=== PATIENT | male | born 1960 | race Caucasian/White ===

== ENCOUNTER 2021-04-18 12:00 | Outpatient (CLI) | payer BC ==
[2021-04-18 11:33] LABS: BASOPHILS % (AUTO) 0.8 % (0-1); EOSINOPHILS # (AUTO) 0.1 X10'3 (0-0.9); EOSINOPHILS % (AUTO) 2.3 % (0-6); LYMPHOCYTES % (AUTO) 18.5 % (21-51); MEAN CORPUSCULAR HEMOGLOBIN 31.1 PG (27.0-31.0); MEAN CORPUSCULAR HGB CONC 33.4 g/dL (33.0-36.5); MEAN CORPUSCULAR VOLUME 93.3 FL (78-98); MEAN PLATELET VOLUME 7.7 FL (7.4-10.4); MONOCYTES # (AUTO) 0.5 X10'3 (0-0.9); MONOCYTES % (AUTO) 9.7 % (2-12); NEUTROPHILS # (AUTO) 3.8 X10'3 (1.8-7.7); NEUTROPHILS % (AUTO) 68.7 % (42-75); PRE OP HEMATOCRIT 45.5 % (42.0-52.0); PRE OP HEMOGLOBIN 15.2 g/dL (14.0-17.9); PRE OP PLATELET COUNT 330 X10'3 (140-440); RED BLOOD COUNT 4.88 X10'6 (4.70-6.10); RED CELL DISTRIBUTION WIDTH 14.4 % (11.5-14.5)
[2021-04-18 11:47] LABS: ALBUMIN 4.1 G/DL (3.4-5.0); ALBUMIN/GLOBULIN RATIO 1.2 (1.1-1.5); ALKALINE PHOSPHATASE 82 IU/L (46-116); BLOOD UREA NITROGEN 23 MG/DL (7-18); BUN/CREATININE RATIO 21.7 (5.4-32.0); CALCIUM 8.8 MG/DL (8.5-10.1); CHLORIDE 105 MMOL/L (99-107); CREATININE 1.06 MG/DL (0.60-1.10); PRE OP ALT 26 U/L (30-65); PRE OP ANION GAP 6 (8-16); PRE OP AST 21 U/L (10-37); PRE OP BILIRUB, TOTAL 0.7 MG/DL (0.0-1.0); PRE OP GLUCOSE 114 MG/DL (70-104); PRE OP POTASSIUM 4.6 MMOL/L (3.4-5.1); PRE OP PROTIME 10.8 SECONDS (9.0-12.0); PRE OP SODIUM 141 MMOL/L (135-145); TOTAL CARBON DIOXIDE 29.9 MMOL/L (24-32); TOTAL PROTEIN 7.5 G/DL (6.4-8.2); eGFR 72 ML/MIN
[~2021-04-18 12:00] MED LIST: AMLO5TAB PO; IBUP-2801 PO; LOSA50TA3 PO; SUMA25TA35 PO
== END 2021-04-18 23:59 | disposition home or self-care (01) ==
LOC: PRE-OP 12:00 → EDSTATUS 04-23 10:00
PROVIDERS: ATTEND Orthopaedic Surgery
DX: Z01.818 Encounter for other preprocedural examination (principal); Z20.822 Contact with and (suspected) exposure to COVID-19; M16.12 Unilateral primary osteoarthritis, left hip
CPT/HCPCS: 36415; 80053; 85025; 85610; 85730; 86885; 86900; 86901; 87081; 93005; U0003; U0005

== ENCOUNTER 2021-05-14 05:36 | Inpatient (IN) | payer BC ==
[2021-05-08 14:54] LABS: BASOPHILS # (AUTO) 0.1 X10'3 (0-0.2); BASOPHILS % (AUTO) 0.9 % (0-1); EOSINOPHILS # (AUTO) 0.2 X10'3 (0-0.9); EOSINOPHILS % (AUTO) 2.3 % (0-6); LYMPHOCYTES # (AUTO) 1.5 X10'3 (1.1-4.8); LYMPHOCYTES % (AUTO) 20.5 % (21-51); MEAN CORPUSCULAR HEMOGLOBIN 30.8 PG (27.0-31.0); MEAN CORPUSCULAR HGB CONC 33.4 g/dL (33.0-36.5); MEAN CORPUSCULAR VOLUME 92.2 FL (78-98); MEAN PLATELET VOLUME 7.5 FL (7.4-10.4); MONOCYTES # (AUTO) 0.7 X10'3 (0-0.9); MONOCYTES % (AUTO) 9.8 % (2-12); NEUTROPHILS # (AUTO) 4.9 X10'3 (1.8-7.7); NEUTROPHILS % (AUTO) 66.5 % (42-75); PRE OP PLATELET COUNT 364 X10'3 (140-440); RED BLOOD COUNT 4.55 X10'6 (4.70-6.10); RED CELL DISTRIBUTION WIDTH 13.9 % (11.5-14.5)
[2021-05-08 15:02] LABS: ALBUMIN/GLOBULIN RATIO 1.3 (1.1-1.5); ALKALINE PHOSPHATASE 86 IU/L (46-116); BLOOD UREA NITROGEN 22 MG/DL (7-18); BUN/CREATININE RATIO 22.9 (5.4-32.0); CALCIUM 9.1 MG/DL (8.5-10.1); CHLORIDE 105 MMOL/L (99-107); CREATININE 0.96 MG/DL (0.60-1.10); PRE OP ALT 41 U/L (30-65); PRE OP ANION GAP 7 (8-16); PRE OP AST 25 U/L (10-37); PRE OP BILIRUB, TOTAL 0.3 MG/DL (0.0-1.0); PRE OP GLUCOSE 95 MG/DL (70-104); PRE OP POTASSIUM 4.4 MMOL/L (3.4-5.1); PRE OP SODIUM 140 MMOL/L (135-145); TOTAL CARBON DIOXIDE 27.6 MMOL/L (24-32); TOTAL PROTEIN 7.1 G/DL (6.4-8.2); eGFR 80 ML/MIN
[2021-05-14] VITALS (33 sets, daily range): BP systolic 105–152; BP diastolic 60–95
[~2021-05-14] VITALS: Ht 175.3 cm; Wt 85.7 kg
[~2021-05-14 05:36] MED LIST changes: +D5W IV ONE; +MELA5TAB12 PO; +VANCOMYCIN IV ONE; +cefazolin/dext.iso 2gm/50ml IV ONE; +famotidine 20mg tablet PO ONE; +ringers solution, lacted 1,000 ML IV SCH; +tranexamic acid inj. 1,000 MG in 0.7% saline 100 ML PMX IV ONE
[2021-05-14] MEDS ORDERED: vancomycin 1,000mg inj ONE (07:09)
[2021-05-14] MEDS ORDERED: tetracaine 1% (10mg/ml) pres. free inj. ONE (07:24)
[2021-05-14] MEDS ORDERED: MIDAZolam 1 MG/ML 5ML VIAL ONE (07:26)
[2021-05-14] MEDS ORDERED: fentaNYL /PF 50mcg/ml 5ml ampule ONE (07:28)
[2021-05-14] MEDS ORDERED: propofol inj 20 ML IV ONE (07:29)
[2021-05-14] MEDS ORDERED: LIDOcaine 1%/PF 5ML 10 MG/ML VIAL ONE (07:29)
[2021-05-14] MEDS ORDERED: sevoflurane 250ml liquid IH ONE (07:32)
[2021-05-14] MEDS ORDERED: morphine 2 MG/ML inj. syringe IV PRN (08:20)
[2021-05-14] MEDS ORDERED: ondansetron/PF 4mg/2ml inj IV PRN ×3 (08:20→14:15)
[2021-05-14] MEDS ORDERED: ringers solution, lacted 1,000 ML IV SCH (08:20)
[2021-05-14] MEDS ORDERED: meperidine/PF 25mg/ml syringe IV PRN ×2 (08:20)
[2021-05-14] MEDS ORDERED: proCHLORperazine 10 MG/2 ml inj IV PRN (08:20)
[2021-05-14] MEDS ORDERED: Thrombin (Bovine) 5,000 unit vial TP ONE (09:16)
[2021-05-14] MEDS ORDERED: phenylephrine 10mg/ml inj. ONE (10:25)
[2021-05-14] MEDS ORDERED: ePHEDrine 50MG/ML INJ. ONE (10:25)
[2021-05-14] MEDS ORDERED: ondansetron/PF 4mg/2ml inj ONE (10:25)
[2021-05-14] MEDS ORDERED: dexamethasone sod phosphate 4mg/ml inj. ONE (10:25)
[2021-05-14] MEDS ORDERED: rocuronium 10mg/ml inj IV ONE (10:25)
[2021-05-14] MEDS ORDERED: meperidine/PF 50mg/ml syringe ONE (10:27)
[2021-05-14] MEDS ORDERED: ROPIVAcaine 0.5% (5mg/ml) 30ml vial ONE (10:28)
[2021-05-14] MEDS ORDERED: glycopyrrolate 0.2mg/ml inj ONE (10:30)
[2021-05-14] MEDS ORDERED: neostigmine methylsulfate 1 MG/ML 10ml vial ONE (10:30)
[2021-05-14] MEDS ORDERED: FENTANYL CITRATE/PF 50 MCG/1 ML VIAL ONE (11:06)
--- NOTE | 2021-05-14 11:08 | NUR ---
Received from OR via HOSPITAL BED , accompanied by Anesthesiologist DR COBIAN and report given by Anesthesiolgist. PT PRESENTS 20G RIGHT AC, WRAP DESSSING ON LEFT HIP WITH POWDER PACK. PT PAIN 10/29. VSS. Addendum: 05/14/21 at 1137 by Hawa Wren RN, RN Amended: Links added.
[2021-05-14] MEDS ORDERED: acetaminophen 325mg tablet PO PRN ×2 (11:10→14:15)
[2021-05-14] MEDS ORDERED: magnesium hydroxide 30ml (MOM) UD suspension PO PRN ×2 (11:10→14:15)
[2021-05-14] MEDS ORDERED: bisacodyl 10mg suppository rectal RC PRN ×2 (11:10→14:15)
[2021-05-14] MEDS ORDERED: diphenhydrAMINE 25mg capsule PO PRN ×4 (11:10→14:15)
[2021-05-14] MEDS: meperidine/PF 25mg/ml syringe IV PRN ×4 (11:22→14:22)
[2021-05-14] MEDS: morphine 4 MG/ML inj SYRINge IV PRN ×3 (11:55→14:39)
[2021-05-14] MEDS ORDERED: acetaminophen 1,000mg/100ml IV 100 ML IV ONE (12:15)
[2021-05-14] MEDS ORDERED: SUMAtriptan 25 MG tablet PO PRN (13:25)
[2021-05-14] MEDS ORDERED: oxyCODONE IR 5mg (immed. release) tablet PO PRN (14:15)
[2021-05-14] MEDS ORDERED: HYDROmorphone 1 mg/ml syringe IV PRN (14:15)
[2021-05-14] MEDS ORDERED: HYDROmorphone inj. 0.5 MG/0.5 ML DISP.SYRIN IV PRN (14:15)
[2021-05-14] MEDS ORDERED: HYDROmorphone/PF 0.2 MG/ML SYRINGE ONE (14:31)
--- NOTE | 2021-05-14 14:38 | NUR ---
Report called to receiving nurse KEVIN TERRAZAS. Transferred via HOSPITAL BED, 1 PT BAG Belongings TO ROOM 354C. BED IN LOW LOCKED POSITION WITH CALL LIGHT WITHIN REACH.. Special Issues communicated to receiving nurse. Addendum: 05/14/21 at 1450 by Hawa Wren RN, RN Amended: Links added.
[2021-05-14] MEDS: oxyCODONE IR 5mg (immed. release) tablet PO PRN ×2 (15:46→20:38)
[2021-05-14] MEDS ORDERED: tranexamic acid inj. 850 MG in normal saline 100ml IV soln 100 ML IV ONE (17:00)
[2021-05-14] MEDS: ceFAZolin/D5W- 1GM premix 50 ML IV SCH (17:00)
--- NOTE | 2021-05-14 18:20 | NUR ---
Patient in room [facility]. I have received report from MK Johnson and had the opportunity to ask questions and assume patient care.
[2021-05-14] MEDS ORDERED: VANCOMYCIN 1GM/200ML IVPB 200 ML IV SCH (20:00)
[2021-05-14] MEDS: potassium cl 20mEq in 1/2 NS 1,000 ML IV SCH ×2 (20:32→22:15)
[2021-05-14] MEDS: acetaminophen 325mg tablet PO SCH (20:35)
[2021-05-14] MEDS: losartan 50mg tablet PO SCH (20:36)
[2021-05-14] MEDS: gabapentin 300mg capsule PO SCH (20:36)
[2021-05-14] MEDS: Melatonin 3mg tablet PO SCH (20:36)
[2021-05-14] MEDS: sennosides 8.6mg tablet PO SCH (20:37)
[2021-05-14] MEDS ORDERED: sennosides 8.6mg tablet PO SCH (21:00)
[2021-05-15] VITALS (8 sets, daily range): BP systolic 98–154; BP diastolic 74–100
[2021-05-15] MEDS: ceFAZolin/D5W- 1GM premix 50 ML IV SCH (00:58)
[2021-05-15] MEDS: oxyCODONE IR 5mg (immed. release) tablet PO PRN ×4 (01:06→19:11)
[2021-05-15] MEDS: acetaminophen 325mg tablet PO SCH ×4 (01:08→21:04)
[2021-05-15 06:23] LABS: BASOPHILS % (AUTO) 0.1 % (0-1); EOSINOPHILS % (AUTO) 0.1 % (0-6); HEMATOCRIT 33.8 % (42.0-52.0); HEMOGLOBIN 11.2 g/dl (14.0-17.9); LYMPHOCYTES # (AUTO) 0.9 X10'3 (1.1-4.8); LYMPHOCYTES % (AUTO) 10.8 % (21-51); MEAN CORPUSCULAR HEMOGLOBIN 30.9 PG (27.0-31.0); MEAN CORPUSCULAR HGB CONC 33.2 g/dL (33.0-36.5); MEAN CORPUSCULAR VOLUME 93.2 FL (78-98); MEAN PLATELET VOLUME 7.9 FL (7.4-10.4); MONOCYTES # (AUTO) 1.2 X10'3 (0-0.9); MONOCYTES % (AUTO) 13.3 % (2-12); NEUTROPHILS # (AUTO) 6.5 X10'3 (1.8-7.7); NEUTROPHILS % (AUTO) 75.7 % (42-75); PLATELET COUNT 259 X10'3 (140-440); RED BLOOD COUNT 3.63 X10'6 (4.70-6.10); RED CELL DISTRIBUTION WIDTH 14.3 % (11.5-14.5); WHITE BLOOD COUNT 8.6 X10'3 (4.5-11.0)
[2021-05-15 06:31] LABS: CHLORIDE 105 MMOL/L (99-107); POTASSIUM 4.2 MMOL/L (3.5-5.1); SODIUM 138 MMOL/L (135-145)
[2021-05-15 06:52] LABS: ANION GAP 6 (8-16); TOTAL CARBON DIOXIDE 27.1 MMOL/L (24-32)
[2021-05-15] MEDS: gabapentin 300mg capsule PO SCH ×3 (07:07→20:58)
[2021-05-15] MEDS: potassium cl 20mEq in 1/2 NS 1,000 ML IV SCH (07:09)
[2021-05-15] MEDS ORDERED: enoxaparin 40mg/0.4ml syringe SUBCUT SCH (08:00)
[2021-05-15] MEDS ORDERED: ketorolac trometh. 30mg/ml inj. IV ONE (13:40)
[2021-05-15] MEDS ORDERED: tamsulosin 0.4mg capsule PO ONE (14:03)
[2021-05-15] MEDS ORDERED: HYDROchlorothiazide 12.5mg capsule PO ONE (15:20)
[2021-05-15] MEDS ORDERED: tizanidine 4mg tablet PO PRN (15:20)
--- NOTE | 2021-05-15 16:44 | NUR ---
Charting by Atif MICHAEL reviewed by Namrata Bishop RN
--- NOTE | 2021-05-15 17:35 | NUR ---
Patient says he is now starting to pass gas and may have a BM soon.
--- NOTE | 2021-05-15 18:31 | NUR ---
Problems reprioritized. Patient report given, questions answered & plan of care reviewed with Janneth TERRAZAS.
[2021-05-15] MEDS: ketorolac tromethamine 15mg/ml inj. IV SCH (20:57)
[2021-05-15] MEDS: celeCOXIB 100mg capsule PO SCH (20:58)
[2021-05-15] MEDS: sennosides 8.6mg tablet PO SCH (20:59)
[2021-05-15] MEDS ORDERED: tamsulosin 0.4mg capsule PO SCH (21:00)
[2021-05-15] MEDS ORDERED: amLODIPine 5mg tablet PO SCH (21:00)
[2021-05-15] MEDS: Melatonin 3mg tablet PO SCH (21:05)
[2021-05-15] MEDS: losartan 50mg tablet PO SCH (21:05)
[2021-05-16] VITALS: BP 134/73
[2021-05-16] MEDS: acetaminophen 325mg tablet PO SCH ×3 (02:00→13:38)
[2021-05-16] MEDS: ketorolac tromethamine 15mg/ml inj. IV SCH ×3 (02:00→13:38)
[2021-05-16] MEDS: oxyCODONE IR 5mg (immed. release) tablet PO PRN ×2 (05:39→10:38)
[2021-05-16 06:20] LABS: BASOPHILS % (AUTO) 0.3 % (0-1); EOSINOPHILS # (AUTO) 0.1 X10'3 (0-0.9); EOSINOPHILS % (AUTO) 0.9 % (0-6); HEMATOCRIT 31.9 % (42.0-52.0); HEMOGLOBIN 10.9 g/dl (14.0-17.9); LYMPHOCYTES # (AUTO) 0.9 X10'3 (1.1-4.8); LYMPHOCYTES % (AUTO) 10.6 % (21-51); MEAN CORPUSCULAR HEMOGLOBIN 31.5 PG (27.0-31.0); MEAN CORPUSCULAR VOLUME 92.5 FL (78-98); MEAN PLATELET VOLUME 7.5 FL (7.4-10.4); MONOCYTES # (AUTO) 1.2 X10'3 (0-0.9); MONOCYTES % (AUTO) 13.3 % (2-12); NEUTROPHILS # (AUTO) 6.7 X10'3 (1.8-7.7); NEUTROPHILS % (AUTO) 74.9 % (42-75); PLATELET COUNT 238 X10'3 (140-440); RED BLOOD COUNT 3.45 X10'6 (4.70-6.10); RED CELL DISTRIBUTION WIDTH 14.2 % (11.5-14.5); WHITE BLOOD COUNT 8.9 X10'3 (4.5-11.0)
--- NOTE | 2021-05-16 06:30 | NUR ---
Patient in room [facility]. I have received report from MK Lagunas and had the opportunity to ask questions and assume patient care.
[2021-05-16 07:00] VITALS: BP 107/71
[2021-05-16] MEDS ORDERED: enoxaparin 40mg/0.4ml syringe SUBCUT SCH (08:00)
[2021-05-16] MEDS ORDERED: HYDROchlorothiazide 12.5mg capsule PO SCH (08:00)
[2021-05-16] MEDS: gabapentin 300mg capsule PO SCH ×2 (08:47→13:38)
[2021-05-16] MEDS: celeCOXIB 100mg capsule PO SCH (08:50)
[2021-05-16 10:23] LABS: ALBUMIN 2.9 G/DL (3.4-5.0); ANION GAP 12 (8-16); BLOOD UREA NITROGEN 14 MG/DL (7-18); BUN/CREATININE RATIO 14.4 (5.4-32.0); CALCIUM 7.9 MG/DL (8.5-10.1); CHLORIDE 102 MMOL/L (99-107); CREATININE 0.97 MG/DL (0.60-1.10); GLUCOSE 137 MG/DL (70-104); POTASSIUM 4.1 MMOL/L (3.5-5.1); SODIUM 138 MMOL/L (135-145); TOTAL CARBON DIOXIDE 23.8 MMOL/L (24-32); eGFR 79 ML/MIN
[2021-05-16 11:00] VITALS: BP 118/80
[2021-05-16] MEDS ORDERED: acetaminophen 325mg tablet PO PRN (14:15)
--- NOTE | 2021-05-16 16:10 | NUR ---
DC inst provided to pt. IV DC'd, tip intact. All belongings sent w/pt. WC to vehicle.
== END 2021-05-16 16:10 | disposition home or self-care (01) | DRG 470 ==
LOC: PAS IN 05:36 → SUR 3N 14:55
PROVIDERS: ADMIT Orthopaedic Surgery; ATTEND Orthopaedic Surgery
PROC: 0SRB06A Replacement of Left Hip Joint with Oxidized Zirconium on Polyethylene Synthetic Substitute, Uncemented, Open Approach (ICD-10-PCS; principal; 2021-05-14 07:32)
DX: M16.12 Unilateral primary osteoarthritis, left hip (principal); D62 Acute posthemorrhagic anemia; N40.1 Benign prostatic hyperplasia with lower urinary tract symptoms; R33.8 Other retention of urine; Z79.899 Other long term (current) drug therapy
CPT/HCPCS: 36415; 72170; 80048; 80051; 80053; 82948; 85025; 86885; 86900; 86901; 87081; 97110; 97116; 97162; 97530; A4215; A4618; A6258; A7000; C1758; C1776; G0378; J0131; J0690; J1100; J1170; J1644; J1650; J1885; J2175; J2250; J2270; J2370; J2405; J2704; J2710; J2795; J3010; J3370; J3480; J3490; J7040; J7060; J7120; Q0163; U0003; U0005

== ENCOUNTER 2024-02-09 12:44 | Outpatient (CLI) | payer BC ==
[~2024-02-09 12:44] MED LIST changes: -D5W IV ONE; +IBUP-2768 PO; -IBUP-2801 PO; +LOSA-416 PO; -LOSA50TA3 PO; -VANCOMYCIN IV ONE; -cefazolin/dext.iso 2gm/50ml IV ONE; -famotidine 20mg tablet PO ONE; -ringers solution, lacted 1,000 ML IV SCH; -tranexamic acid inj. 1,000 MG in 0.7% saline 100 ML PMX IV ONE
== END 2024-02-09 23:59 | disposition home or self-care (01) ==
LOC: RAD 12:44
PROVIDERS: ATTEND Podiatrist Foot & Ankle Surgery
DX: M19.071 Primary osteoarthritis, right ankle and foot (principal); M79.671 Pain in right foot; M25.571 Pain in right ankle and joints of right foot; M21.41 Flat foot [pes planus] (acquired), right foot; M21.6X1 Other acquired deformities of right foot; L03.115 Cellulitis of right lower limb; M24.674 Ankylosis, right foot; R60.0 Localized edema; L02.611 Cutaneous abscess of right foot; Z98.890 Other specified postprocedural states
CPT/HCPCS: 73700